=== PATIENT | male | born 1960 | race Native Hawaiian/Other Pacific Islander ===

== ENCOUNTER 2017-08-03 11:07 | Inpatient (IN) | payer OTHER, BC ==
[~2017-08-03] VITALS: Ht 180.3 cm; Wt 132.3 kg
[2017-08-03 13:42] LABS: PLATELET COUNT 177 K/uL (142-355)
[2017-08-03 13:44] LABS: POTASSIUM 4.3 mmol/L (3.6-5.2); SODIUM 136 mmol/L (136-145)
[2017-08-03 14:15] LABS: PARTIAL THROMBOPLASTIN TIME 25.2 SECONDS (24.5-33.6)
[2017-08-03 16:30] VITALS: BP 115/64; TEMP 98.6
[2017-08-03 19:59] VITALS: BP 137/87; TEMP 97.5; Ht 180.3 cm; Wt 132.3 kg
[2017-08-03 20:00] VITALS: BP 108/61; TEMP 98
[2017-08-04] VITALS: BP 116/66; TEMP 97.8
[2017-08-04 04:00] VITALS: BP 119/65; TEMP 97.9
[2017-08-04 05:05] LABS: PLATELET COUNT 175 K/uL (142-355)
[2017-08-04 05:15] LABS: POTASSIUM 4.1 mmol/L (3.6-5.2); SODIUM 135 mmol/L (136-145)
[2017-08-04 08:00] VITALS: BP 112/67; TEMP 97.6
[2017-08-04 12:00] VITALS: BP 111/59; TEMP 97.8
[2017-08-04 16:00] VITALS: BP 104/63; TEMP 97.5
[2017-08-04 20:16] VITALS: BP 106/54; TEMP 97.5
[2017-08-05] VITALS: BP 109/62; TEMP 97.6
[2017-08-05 04:00] VITALS: BP 107/71; TEMP 97.6
[2017-08-05 05:46] LABS: PLATELET COUNT 165 K/uL (142-355)
[2017-08-05 06:03] LABS: SODIUM 138 mmol/L (136-145)
[2017-08-05 08:00] VITALS: BP 106/70; TEMP 97.5
[2017-08-05 12:00] VITALS: BP 107/64; TEMP 97.5
[2017-08-05 16:00] VITALS: BP 108/67; TEMP 97.3
[2017-08-05 20:00] VITALS: BP 114/66; TEMP 97.3
[2017-08-06] VITALS: BP 115/71; TEMP 97.7
[2017-08-06 04:00] VITALS: BP 115/71; TEMP 97.5
[2017-08-06 08:00] VITALS: BP 122/77; TEMP 97.7
[2017-08-06 12:00] VITALS: BP 114/74; TEMP 98.1
[2017-08-06 16:00] VITALS: BP 139/84; TEMP 97.3
[2017-08-06 20:00] VITALS: BP 145/83; TEMP 97.3
[2017-08-07] VITALS: BP 119/71; TEMP 97.7
[2017-08-07 04:00] VITALS: BP 123/84; TEMP 97.3
[2017-08-07 05:17] LABS: PLATELET COUNT 182 K/uL (142-355)
[2017-08-07 05:27] LABS: POTASSIUM 4.6 mmol/L (3.6-5.2); SODIUM 132 mmol/L (136-145)
[2017-08-07 08:00] VITALS: BP 124/76; TEMP 97.5
[2017-08-07 12:30] VITALS: BP 124/72; TEMP 98.1
[2017-08-07 16:30] VITALS: BP 141/85; TEMP 98.1
[2017-08-07 20:00] VITALS: BP 105/64; TEMP 97.9
[2017-08-08] VITALS: BP 129/86; TEMP 97
[2017-08-08 04:19] VITALS: BP 98/68; TEMP 97.6
[2017-08-08 05:22] LABS: PLATELET COUNT 180 K/uL (142-355)
[2017-08-08 05:25] LABS: POTASSIUM 4.5 mmol/L (3.6-5.2); SODIUM 133 mmol/L (136-145)
[2017-08-08 08:00] VITALS: BP 115/75; TEMP 97.8
[2017-08-08 12:00] VITALS: BP 109/65; TEMP 97.6
[2017-08-08] MEDS ORDERED: MEDROL DOSEPAK4 MG PO (14:08)
[2017-08-08] MEDS ORDERED: BUDE1AER5 INH (14:08)
[2017-08-08] MEDS ORDERED: NICODIS TD (14:08)
[2017-08-08] MEDS ORDERED: PROVENTIL IN (14:08)
[2017-08-08 16:00] VITALS: BP 106/62; TEMP 98
== END 2017-08-08 16:50 | disposition home or self-care (01) | DRG 192 ==
LOC: MED/SURG 11:07
PROVIDERS: Specialist; ADMIT Nurse Practitioner Family
DX: J44.1 Chronic obstructive pulmonary disease with (acute) exacerbation (principal); E66.8 Other obesity
CPT/HCPCS: 36415; 36600; 80053; 80061; 82550; 82805; 83735; 83880; 84484; 85027; 85379; 85610; 85730; 87070; 87205; 88108; 93005; 94640; 94664; 94760; 96367; 96372; 96374; 96375; J1650; J1956; J2930; J3490

== ENCOUNTER 2017-08-16 09:45 | Outpatient (CLI) | payer OTHER, BC ==
[~2017-08-16] VITALS: Ht 180.3 cm; Wt 127.5 kg
[~2017-08-16 09:45] MED LIST: BUDE1AER5 INH; MEDROL DOSEPAK4 MG PO; NICODIS TD; PROVENTIL IN
== END 2017-08-16 12:00 | disposition home or self-care (01) ==
LOC: NM 09:45
DX: J44.9 Chronic obstructive pulmonary disease, unspecified (principal)
CPT/HCPCS: 93306; 94664; A9500; J2785

== ENCOUNTER 2017-09-06 08:00 | Outpatient (CLI) | payer OTHER, BC | END 2017-09-06 09:15 | disposition home or self-care (01) | LOC: CT 08:00 | DX: Z87.891 Personal history of nicotine dependence (principal) ==

== ENCOUNTER 2017-10-21 08:21 | Outpatient (CLI) | payer OTHER, BC | END 2017-10-21 19:27 | disposition home or self-care (01) | LOC: CT 08:21 | DX: G47.31 Primary central sleep apnea (principal); J44.9 Chronic obstructive pulmonary disease, unspecified ==

== ENCOUNTER → 2017-10-26 07:53 | Outpatient (CLI) | payer OTHER, BC | END | disposition home or self-care (01) | LOC: RESP 10-25 10:30 | DX: G47.31 Primary central sleep apnea (principal) | CPT/HCPCS: 93306 ==

== ENCOUNTER 2018-07-05 09:48 | Outpatient (CLI) | payer OTHER, BC | END 2018-07-05 20:15 | disposition home or self-care (01) | LOC: CT 09:48 | DX: J44.9 Chronic obstructive pulmonary disease, unspecified (principal) ==

== ENCOUNTER 2018-09-01 10:01 | Outpatient (CLI) | payer OTHER, BC | END 2018-09-01 20:33 | disposition home or self-care (01) | LOC: LABW 10:01 | DX: Z04.89 Encounter for examination and observation for other specified reasons (principal) | CPT/HCPCS: 80307; 81000 ==

== ENCOUNTER 2018-09-05 08:37 | Outpatient (CLI) | payer OTHER | END 2018-09-05 21:22 | disposition home or self-care (01) | LOC: MRI 08:37 | DX: S09.90XA Unspecified injury of head, initial encounter (principal) ==

== ENCOUNTER 2018-09-15 10:25 | Outpatient (CLI) | payer OTHER | END 2018-09-15 20:51 | disposition home or self-care (01) | LOC: RAD 10:25 | DX: S22.39XA Fracture of one rib, unspecified side, initial encounter for closed fracture (principal) ==

== ENCOUNTER 2019-04-30 08:31 | Outpatient (CLI) | payer OTHER, BC | END 2019-05-01 05:46 | disposition home or self-care (01) | LOC: RESP 08:31 | DX: J44.9 Chronic obstructive pulmonary disease, unspecified (principal) ==

== ENCOUNTER 2019-07-09 18:26 | Outpatient (CLI) | payer OTHER, BC | END 2019-07-09 21:52 | disposition home or self-care (01) | LOC: RAD 18:26 | DX: R05 Cough (principal) ==

== ENCOUNTER 2020-10-15 07:55 | Outpatient (CLI) | payer OTHER, BC | END 2020-10-15 19:28 | disposition home or self-care (01) | LOC: CT 07:55 | PROVIDERS: ATTEND Internal Medicine Sleep Medicine | DX: Z87.891 Personal history of nicotine dependence (principal) ==

== ENCOUNTER 2020-12-10 09:02 | Outpatient (CLI) | payer OTHER, BC | END 2020-12-10 19:38 | disposition home or self-care (01) | LOC: RESP 09:02 | PROVIDERS: ATTEND Internal Medicine Sleep Medicine | DX: J44.9 Chronic obstructive pulmonary disease, unspecified (principal) ==

== ENCOUNTER 2021-10-14 09:25 | Outpatient (CLI) | payer OTHER, BC | END 2021-10-14 18:53 | disposition home or self-care (01) | LOC: CT 09:25 | PROVIDERS: ATTEND Internal Medicine Sleep Medicine | DX: Z87.891 Personal history of nicotine dependence (principal) ==

== ENCOUNTER 2021-11-05 07:50 | Outpatient (CLI) | payer OTHER, BC | END 2021-11-05 21:17 | disposition home or self-care (01) | LOC: RESP 07:50 | PROVIDERS: ATTEND Internal Medicine Sleep Medicine | DX: J44.9 Chronic obstructive pulmonary disease, unspecified (principal) ==

== ENCOUNTER 2022-02-16 10:27 | Outpatient (CLI) | payer OTHER, BC | END 2022-02-16 19:01 | disposition home or self-care (01) | LOC: US | PROVIDERS: ATTEND Nurse Practitioner Family | DX: N50.89 Other specified disorders of the male genital organs (principal) ==

== ENCOUNTER 2023-06-21 07:51 | Outpatient (CLI) | payer OTHER, BC | END 2023-06-21 20:41 | disposition home or self-care (01) | LOC: CT 07:51 | PROVIDERS: ATTEND Internal Medicine Sleep Medicine | DX: Z87.891 Personal history of nicotine dependence (principal) ==